=== PATIENT | male | born 1965 | race Caucasian/White ===

== ENCOUNTER 2019-06-24 10:40 | Emergency (ER) | payer SELFPAY ==
[~2019-06-24] VITALS: Ht 177.8 cm; Wt 95.2 kg
[2019-06-24] MEDS ORDERED: METFORMIN HCL500 M1 PO (10:52)
[2019-06-24] MEDS ORDERED: GLIPIZIDE5 MG PO (10:53)
[2019-06-24] MEDS ORDERED: PRINIVIL5 MG PO (10:53)
--- NOTE | 2019-06-24 13:11 | EKG ---
[facility] [address] [place], [place] [address] Signed Normal sinus rhythm Nonspecific T wave abnormality Abnormal ECG No previous ECGs available Confirmed by GERMAIN MARQUES DO ([id number]) on 06/24/2019 1:11:21 PM Electronically Signed By: GERMAIN MARQUES DO 06/24/19 1311 PATIENT NAME: ROSALIO ACEVES Electrocardiogram DATE OF : 65 PHYSICIAN: GERMAIN MARQUES DO REPORT #: [id number] REPORT IS CONFIDENTIAL AND NOT TO BE RELEASED WITHOUT AUTHORIZATION
[2019-06-24] MEDS ORDERED: ASPIRIN EC81 MG PO (13:37)
[2019-06-24] MEDS ORDERED: MECLIZINE HCL25 MG PO (13:37)
[2019-06-24] MEDS ORDERED: ATIVAN1 MG PO (13:37)
== END 2019-06-24 14:23 | disposition home or self-care (01) ==
LOC: ED 10:40
DX: I20.9 Angina pectoris, unspecified (principal); H81.10 Benign paroxysmal vertigo, unspecified ear; I10 Essential (primary) hypertension; E11.9 Type 2 diabetes mellitus without complications; Z87.442 Personal history of urinary calculi; Z79.84 Long term (current) use of oral hypoglycemic drugs; Z79.899 Other long term (current) drug therapy
CPT/HCPCS: 71045; 80053; 84484; 85025; 85379; 93005; 93010; 96374; 96375; 99284-25; J2060; J2405